=== PATIENT | female | born 1980 | race Caucasian/White ===

== ENCOUNTER 2019-02-21 10:03 | Day surgery (SDC) | payer OTHER, BC ==
[~2019-02-21] VITALS: Ht 157.5 cm; Wt 88.1 kg
[~2019-02-21 10:03] MED LIST: ABAT250V; HYDR1TAB94 PO; PANT40 PO; VITAMIN D310000 UNIT PO; Zofran4 MG PO
[2019-02-21] MEDS ORDERED: BUPR150ER PO (10:30)
--- NOTE | 2019-02-21 13:54 | NUR ---
02/21/19 1354 Ashley Gomez LATE ENTRY----PATIENT NOTIFIED THAT PRIOR CASE HAD RUN LONG AND CAUSED A DELAY FOR HER CASE TO BE STARTED. PATIENT VERBALIZED UNDERSTANDING AND ASKED FOR HER PURSE SO SHE COULD NOTIFIY HER RIDE. PATIENT GIVEN PURSE AND WARM BLANKET, HEAD OF BED ADJUSTED TO HER APPROVAL. PATIENT HAD CALL LIGHT ON BEDSIDE AND WAS INSTRUCTED ON USE.
== END 2019-02-21 12:39 | disposition home or self-care (01) ==
LOC: ORSCSDS 10:03
PROVIDERS: Internal Medicine Gastroenterology
PROC: 0DB68ZX Excision of Stomach, Via Natural or Artificial Opening Endoscopic, Diagnostic (ICD-10-PCS; principal; 2019-02-21 11:30)
PROC: 0DB98ZX Excision of Duodenum, Via Natural or Artificial Opening Endoscopic, Diagnostic (ICD-10-PCS; principal; 2019-02-21 11:30)
DX: K21.9 Gastro-esophageal reflux disease without esophagitis (principal); K44.9 Diaphragmatic hernia without obstruction or gangrene; K29.50 Unspecified chronic gastritis without bleeding; R10.12 Left upper quadrant pain; R11.2 Nausea with vomiting, unspecified; Z87.891 Personal history of nicotine dependence
CPT/HCPCS: 88305; 88342; J2250; J2704; J7120

== ENCOUNTER 2020-02-13 12:58 | Emergency (ER) | payer OTHER, BC ==
[~2020-02-13] VITALS: Ht 157.5 cm; Wt 86.2 kg
[~2020-02-13 12:58] MED LIST changes: +BUPR150ER PO
[2020-02-13 13:48] LABS: BASOPHILS ABSOLUTE AUTO 0.04 K/mm3 (0.00-0.23); BASOPHILS PERCENT AUTO 0 % (0-2); EOSINOPHILS ABSOLUTE AUTO 0.07 K/mm3 (0.00-0.68); EOSINOPHILS PERCENT AUTO 1 % (0-6); Hematocrit 42.3 % (33.0-51.0); Hemoglobin 13.5 g/dL (11.5-16.0); IMMATURE GRAN ABSOLUTE AUTO 0.02 K/mm3 (0.00-0.10); IMMATURE GRAN PERCENT AUTO 0 % (0-1); LYMPHOCYTES PERCENT AUTO 22 % (21-46); MONOCYTES ABSOLUTE AUTO 0.65 K/mm3 (0.16-1.47); MONOCYTES PERCENT AUTO 6 % (4-13); Mean Corpuscular HGB 31.5 pg (26.0-34.0); Mean Corpuscular HGB Conc 31.9 g/dL (31.5-36.5); Mean Corpuscular Volume 99 fL (80-100); Mean Platelet Volume 11.4 fL (9.1-12.4); NEUTROPHILS ABSOLUTE AUTO 7.39 K/mm3 (1.96-9.15); NEUTROPHILS PERCENT AUTO 71 % (41-73); Platelet Count 277 K/mm3 (150-400); RDW Coefficient Variation 13.2 % (11.7-14.2); RDW Standard Deviation 48.1 fL (35.1-46.3); Red Blood Cell Count 4.29 M/mm3 (3.80-5.20); White Blood Cell Count 10.47 K/mm3 (4.00-11.30)
[2020-02-13 14:06] LABS: Alanine Aminotransfer (ALT/SGP 15 U/L (12-78); Albumin, Blood 3.9 g/dL (3.4-5.0); Albumin/Globulin Ratio 1.1 (0.8-1.8); Alk Phos 94 U/L (50-136); Anion Gap 4 mmol/L (6-16); Aspartate Aminotrans (AST/SGOT 14 U/L (12-37); Bilirubin, Total 0.4 mg/dL (0.1-1.0); Blood Urea Nitrogen 10 mg/dL (8-24); Bun/Creatinine Ratio 10.7 (12.0-20.0); CO2, Blood 27 mmol/L (21-32); Calcium, Blood 8.7 mg/dL (8.5-10.1); Chloride, Blood 111 mmol/L (98-108); Creatinine, Blood 0.94 mg/dL (0.40-1.00); Globulin, Blood 3.5 g/dL (2.2-4.0); Glomerular Filtration Rate >60 (60-); Glucose, Blood 100 mg/dL (70-99); Potassium, Blood 3.7 mmol/L (3.5-5.5); Sodium, Blood 142 mmol/L (136-145); Total Protein, Blood 7.4 g/dL (6.4-8.2)
[2020-02-13] MEDS ORDERED: Roxicodone5 MG PO (15:35)
== END 2020-02-13 15:51 | disposition home or self-care (01) ==
LOC: ER 12:58
PROVIDERS: Physician Assistant
DX: K21.9 Gastro-esophageal reflux disease without esophagitis (principal); Z79.899 Other long term (current) drug therapy
CPT/HCPCS: 36415; 71046; 80053; 84484; 85025; 93005; 93010; 99285-25